=== PATIENT | female | born 1955 | race Caucasian/White ===

== ENCOUNTER 2018-06-18 21:02 | Emergency (ER) | payer OTHER ==
[2018-06-18] MEDS ORDERED: DIPH/PERTUSS(ACELL)/TETANUS VAC/PF 0.5 ML SYR (>=10YO) IM ONE (22:10)
--- NOTE | 2018-06-18 22:15 | ER Document Report ---
ED General - General Chief Complaint: Snake Bite Stated Complaint: SNAKE BITE Time Seen by Provider: 06/18/18 21:36 Primary Care Provider: FAROOQ FRAUSTO DO [Primary Care Provider] - Follow up as needed Notes: Patient is a 62-year old female without chronic medical problems who presents after being bit on the right ankle by a copperhead just prior to arrival. States that she was out in her yard when this happened. States that it felt like she got hit in the ankle with a baseball bat. 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 The patient states that since that time the pain is actually decreased significantly and is now only a mild, throbbing, constant discomfort worsened by movement of the ankle. Has not tried nothing for improvement of the discomfort. She denies any shortness of breath, chest pain, nausea, vomiting or significant swelling to the extremity. She has noted no progression of symptoms since initial time of bite just after 7 PM. No history of similar symptoms in the past. She does arrive by EMS. TRAVEL OUTSIDE OF THE [place] IN LAST 30 DAYS: No - Related Data Allergies/Adverse Reactions: No Known Allergies Allergy (Verified 06/18/18 22:03) Past Medical History - General Information source: Patient - Social History Smoking Status: Never Smoker Chew tobacco use (# tins/day): No Frequency of alcohol use: Rare Drug Abuse: None Lives with: Family Family History: Reviewed & Not Pertinent Patient has suicidal ideation: No Patient has homicidal ideation: No Renal/ Medical History: Denies: Hx Peritoneal Dialysis Past Surgical History: Reports: Hx Appendectomy, Hx Cholecystectomy Review of Systems - Review of Systems Notes: Constitutional: Negative for fever. HENT: Negative for sore throat. Eyes: Negative for visual changes. Cardiovascular: Negative for chest pain. Respiratory: Negative for shortness of breath. Gastrointestinal: Negative for abdominal pain, vomiting or diarrhea. Genitourinary: Negative for dysuria. Musculoskeletal: Positive for right ankle pain Skin: Negative for rash. Neurological: Negative for headaches, weakness or numbness. 10 point ROS negative except as marked above and in HPI. Physical Exam - Vital signs Vitals: Pulse Ox 95 06/18/18 22:00 Interpretation: Normal Notes: PHYSICAL EXAMINATION: GENERAL: Well-appearing, well-nourished and in no acute distress. HEAD: Atraumatic, normocephalic. EYES: Pupils equal round and reactive to light, extraocular movements intact, sclera anicteric, conjunctiva are normal. ENT: nares patent, oropharynx clear without exudates. Moist mucous membranes. NECK: Normal range of motion, supple without lymphadenopathy LUNGS: Breath sounds clear to auscultation bilaterally and equal. No wheezes rales or rhonchi. HEART: Regular rate and rhythm without murmurs ABDOMEN: Soft, nontender, normoactive bowel sounds. No guarding, no rebound. No masses appreciated. EXTREMITIES: Normal range of motion, no pitting or edema. No cyanosis. NEUROLOGICAL: No focal neurological deficits. Moves all extremities spontaneously and on command. PSYCH: Normal mood, normal affect. SKIN: Warm, Dry, normal turgor, single puncture wound to the medial malleolus of the right ankle Course - Re-evaluation Re-evalutation: 06/18/18 22:10 Patient presents with exam and history most consistent with a dry copperhead bite to the right ankle. There is no evidence of edema, swelling, induration and the bite did occur over 2 hours ago. I do not believe the patient requires any imaging, labs or further workup. No indication for administration of antivenom. Tetanus updated. At this time will discharge with return precautions and follow-up recommendations. Verbal discharge instructions given a the bedside and opportunity for questions given. Medication warnings reviewed. Patient is in agreement with this plan and has verbalized understanding of return precautions and the need for primary care follow-up in the next 24-72 hours. - Vital Signs Vital signs: Temp Pulse Resp BP Pulse Ox 98.8 F 18 134/92 H 97 06/18/18 22:01 06/18/18 22:01 06/18/18 22:01 06/18/18 22:01 Discharge - Discharge Clinical Impression: Snake bite Qualifiers: Encounter type: initial encounter Qualified Code(s): W59.11XA - Bitten by nonvenomous snake, initial encounter Right ankle pain Qualifiers: Chronicity: acute Qualified Code(s): M25.571 - Pain in right ankle and joints of right foot Condition: Good Disposition: HOME, SELF-CARE Additional Instructions: You were bitten by a copperhead today. Thankfully this appears to be a dry bite. Please follow closely with your primary care physician in the next several days. Return to the emergency department immediately if you have spreading redness, fever greater than 101F, persistent vomiting, weakness, numbness, difficulty breathing, or any other symptoms that are of concern to you. Referrals: FAROOQ FRAUSTO, DO [Primary Care Provider] - Follow up as needed
[2018-06-18 22:29] VITALS: BP 134/92
== END 2018-06-18 22:30 | disposition home or self-care (01) ==
LOC: ER 21:02
DX: S91.051A Open bite, right ankle, initial encounter (principal); M25.571 Pain in right ankle and joints of right foot; W59.11XA Bitten by nonvenomous snake, initial encounter; Y92.007 Garden or yard of unspecified non-institutional (private) residence as the place of occurrence of the external cause; Z23 Encounter for immunization; Z90.49 Acquired absence of other specified parts of digestive tract
CPT/HCPCS: 90471; 90715; 99284